=== PATIENT | female | born 1970 | race Caucasian/White ===

== ENCOUNTER → 2016-07-25 | Outpatient (CLI) | payer OTHER | LOC: FIMAGING 13:32 | PROVIDERS: ATTEND Nurse Practitioner Adult Health | DX: R91.1 Solitary pulmonary nodule (principal) ==

== ENCOUNTER → 2016-07-25 | Outpatient (CLI) | payer OTHER | LOC: BMCIMAGING 10:35 | PROVIDERS: ATTEND Nurse Practitioner Adult Health | DX: J40 Bronchitis, not specified as acute or chronic (principal); R91.1 Solitary pulmonary nodule ==

== ENCOUNTER → 2017-02-28 | Outpatient (CLI) | payer OTHER | LOC: FIMAGING 09:00 | PROVIDERS: ATTEND Obstetrics & Gynecology | DX: Z12.31 Encounter for screening mammogram for malignant neoplasm of breast (principal) | CPT/HCPCS: G0202 ==

== ENCOUNTER → 2018-03-14 | Outpatient (CLI) | payer OTHER | LOC: BMCIMAGING 12:35 | PROVIDERS: ATTEND Obstetrics & Gynecology | DX: Z12.31 Encounter for screening mammogram for malignant neoplasm of breast (principal) ==